=== PATIENT | male | born 1985 | race Caucasian/White ===

== ENCOUNTER 2016-10-31 18:06 | Emergency (ER) | payer BC ==
[2016-10-31] MEDS ORDERED: SODIUM CHLORIDE 0.9% 1,000 ML ONE (21:35)
[2016-10-31] MEDS ORDERED: Meclizine HCl 25 MG TAB ONE (22:13)
[2016-10-31] MEDS ORDERED: ONDANSETRON 4 MG VIAL ONE (22:13)
== END 2016-10-31 22:48 | disposition home or self-care (01) ==
LOC: ER 18:06
DX: H83.03 Labyrinthitis, bilateral (principal); H70.003 Acute mastoiditis without complications, bilateral; J01.00 Acute maxillary sinusitis, unspecified; J01.20 Acute ethmoidal sinusitis, unspecified
CPT/HCPCS: 36415; 70551; 80053; 82947; 84439; 84443; 85025; 93005; 96361; 96374